=== PATIENT | male | born 1955 | race African-American/Black ===

== ENCOUNTER 2019-07-19 21:30 | Inpatient (IN) | payer MEDICAID ==
[~2019-07-19] VITALS: Ht 167.6 cm; Wt 58.1 kg
[2019-07-19 21:35] VITALS: BP_SYST 155; BP_SYST 5
--- NOTE | 2019-07-19 21:40 | NUR ---
Placed in room 6 . Placed on cardiac cath lab manager, blood pressure machine and pulse oximeter. To gown for exam. Side rails up. Report given to DEEPA ROCK.
--- NOTE | 2019-07-19 22:10 | NUR ---
Pt BIB EMS with c/o SOB. Pt A&Ox4. Upon assessment, pt presents with bilateral diminished lung sounds with wheezing. Pt states history of COPD. Pt states productive cough for a couple days. Pt describes sputum as yellow/green. Pt states sore throat, body aches, runny nose and headache. Pt states pain 2/10. Pt presents to ER with 18g in Left forearm. IV flushed and working. Will continue to monitor.
[2019-07-19 22:16] LABS: BASOPHILS % (AUTO) 0.2 % (0.0-2.0); EOSINOPHILS # (AUTO) 0.2 K/uL (0.0-0.4); EOSINOPHILS % (AUTO) 1.6 % (0.0-4.0); HEMATOCRIT 47.6 % (36-54); LYMPHOCYTES # (AUTO) 0.9 K/uL (1.0-5.5); MEAN CORPUSCULAR HEMOGLOBIN 29 pg (27-31); MEAN CORPUSCULAR HGB CONC 31 % (32-36); MEAN CORPUSCULAR VOLUME 92 fL (79.0-98.0); MONOCYTES # (AUTO) 1.3 K/uL (0.0-1.0); MONOCYTES % (AUTO) 12.1 % (1.7-9.3); NEUTROPHILS # (AUTO) 8.7 K/uL (1.8-7.7); NEUTROPHILS % (AUTO) 78.1 % (40.0-70.0); PLATELET COUNT (AUTO) 234 K/uL (130-430); RED BLOOD CELL COUNT(AUTO) 5.17 MIL/uL (4.2-6.2); RED CELL DISTRIBUTION WIDTH 14.2 % (9.0-15.0); WHITE BLOOD COUNT (AUTO) 11.1 K/uL (4.8-10.8)
--- NOTE | 2019-07-19 22:26 | NUR ---
ER Dr. Alarcon at bedside examining patient.
[2019-07-19 22:37] LABS: CALCIUM 8.6 mg/dL (8.4-11.0); CREATININE 0.8 mg/dL (0.55-1.30); POTASSIUM 4.7 mmol/L (3.5-5.1)
[2019-07-19 22:41] LABS: INR 1.1 (0.80-1.20); PROTHROMBIN TIME 11.1 SECS (9.5-12.5)
[2019-07-19 22:43] LABS: ALBUMIN 3.5 g/dL (3.4-4.8); TOTAL BILIRUBIN 0.4 mg/dL (0.0-1.0)
[2019-07-19] MEDS ORDERED: OSELTAMIVIR PHOSPHATE 75 MG CAPSULE PO ONE (22:45)
[2019-07-19] MEDS ORDERED: IPRATROPIUM/ALBUTEROL SULFATE 3 ML AMPUL.NEB (DUONEB) INH ONE (22:45)
[2019-07-19] MEDS ORDERED: methylPREDNISolone SOD SUCC/PF 62.5 MG/ML VIAL IVP ONE (22:45)
[2019-07-19] MEDS ORDERED: ALBU2.5V7 INH (22:51)
[2019-07-19] MEDS ORDERED: FURO-149 PO (22:51)
[2019-07-19] MEDS ORDERED: HYDR-3925 PO (22:51)
[2019-07-19] MEDS ORDERED: CARV3.1246 PO (22:51)
--- NOTE | 2019-07-19 22:51 | NUR ---
Medication reconciliation completed with information provided by patient. Any prior medication reconciliation on file was reviewed and corrected.
--- NOTE | 2019-07-19 23:20 | NUR ---
Pt medicated per MD orders. Pt tolerated well. Will continue to monitor.
--- NOTE | 2019-07-20 01:10 | NUR ---
Patient will be admitted to care of [facility]. Admitted to Telemetry unit. Will go to room 123A. Belongings list completed. Complete and up to date summary report printed. SBAR report to be given at bedside with opportunity for questions.
[2019-07-20] MEDS ORDERED: ACETAMINOPHEN 500 MG TABLET PO PRN (01:15)
[2019-07-20] MEDS ORDERED: HYDROcodone/ACETAMIN 7.5-325 MG TAB PO PRN (01:15)
[2019-07-20] MEDS ORDERED: ONDANSETRON HCL 4 MG/2 ML VIAL IVP PRN (01:15)
[2019-07-20] MEDS ORDERED: IPRATROPIUM/ALBUTEROL SULFATE 3 ML AMPUL.NEB (DUONEB) INH PRN (01:15)
[2019-07-20] MEDS ORDERED: DOCUSATE SODIUM 100 MG/10 ML UDC PO PRN (01:15)
--- NOTE | 2019-07-20 01:26 | NUR ---
ADMIT NOTE Received pt from ER to the floor with a diagnosis of COPD EXACERBATION. Admission process initiated. patient oriented to pain management, safety and call light-teach back done.
--- NOTE | 2019-07-20 01:26 | NUR ---
Transfer to Telemetry room 123A via ACLS protocol. Licensed nurse present. IV present no signs or symptoms of infiltration.
[2019-07-20 01:36] VITALS: BP_SYST 139
--- NOTE | 2019-07-20 01:40 | NUR ---
ROUNDS PATIENT IN BED, VITALS STABLE, DENIES ANY PAIN AND DISCOMFORT AT THIS TIME. ASSESSMENT DONE AND DOCUMENTED. SEE FLOWSHEET. ORIENTED TO HIS ROOM, PHONE AND CALL LIGHT. NEEDS ATTENDED TO. SAFETY AND FALL MEASURES IN PLACED. BED IN LOW AND LOCKED POSITION. CALL LIGHT PLACED WITHIN REACH.
[2019-07-20 01:59] LABS: PHOSPHORUS 1.9 mg/dL (2.7-4.5)
[2019-07-20 02:40] LABS: FREE T4 (FREE THYROXINE) 1.1 ng/dL (0.6-1.6); THYROID STIMULATING HORMONE 0.46 uIu/mL (0.34-4.82)
--- NOTE | 2019-07-20 04:10 | NUR ---
ROUNDS PATIENT ASLEEP, RESPIRATIONS EVEN AND UNLABORED, WILL CONTINUE TO MONITOR.
[2019-07-20 05:00] VITALS: BP_SYST 139
--- NOTE | 2019-07-20 05:02 | NUR ---
[facility] CONSULT CALLED: CALLED AND TALKED WITH DIMITRI AND NOTIFIED THE NEW CONSULT WITH DR HICKEY FOR COPD EXACERBATION. DR HICKEY IS ONCALL
[2019-07-20] MEDS: methylPREDNISolone SOD SUCC/PF 62.5 MG/ML VIAL IVP SCH ×2 (05:22→15:18)
[2019-07-20] MEDS: NACL 0.9% 1,000 ML IV SCH (05:22)
[2019-07-20] MEDS: IPRATROPIUM/ALBUTEROL SULFATE 3 ML AMPUL.NEB (DUONEB) INH SCH ×4 (07:17→19:59)
[2019-07-20 08:00] VITALS: BP_SYST 128
--- NOTE | 2019-07-20 08:00 | NUR ---
ASSUMPTION OF CARE: RECEIVED PT A/A/OX4, DX:INADEQUATE VENTILATION, R/T COPD EXACERBATION, VSS, AFEBRILE, NO S/S OF DISTRESS, RECEIVING BREATHING TX AT THIS TIME, BREATH SOUNDS ARE RHONCHI WITH MILD CRACKLES, SATURATING 95% WHILE ON 2L VIA N/C, NO C/O PAIN OR DISCOMFORT, IV SITE INTACT, PATENT, NO REDNESS OR SWELLING, ORIENTED TO CALL LIGHT, PLACED WITHIN REACH, WILL CONT' TO MONITOR AND ASSESS.
[2019-07-20 10:48] LABS: BASOPHILS % (AUTO) 0.1 % (0.0-2.0); EOSINOPHILS % (AUTO) 0.1 % (0.0-4.0); HEMATOCRIT 47.1 % (36-54); LYMPHOCYTES # (AUTO) 0.3 K/uL (1.0-5.5); LYMPHOCYTES % (AUTO) 3.2 % (20.5-51.5); MEAN CORPUSCULAR HEMOGLOBIN 29 pg (27-31); MEAN CORPUSCULAR HGB CONC 32 % (32-36); MEAN CORPUSCULAR VOLUME 91 fL (79.0-98.0); MONOCYTES # (AUTO) 0.1 K/uL (0.0-1.0); MONOCYTES % (AUTO) 0.7 % (1.7-9.3); NEUTROPHILS % (AUTO) 95.9 % (40.0-70.0); PLATELET COUNT (AUTO) 219 K/uL (130-430); RED BLOOD CELL COUNT(AUTO) 5.16 MIL/uL (4.2-6.2); RED CELL DISTRIBUTION WIDTH 14.2 % (9.0-15.0); WHITE BLOOD COUNT (AUTO) 10.4 K/uL (4.8-10.8)
[2019-07-20 10:59] LABS: CALCIUM 9.4 mg/dL (8.4-11.0); CREATININE 0.89 mg/dL (0.55-1.30); POTASSIUM 5.1 mmol/L (3.5-5.1)
[2019-07-20] MEDS ORDERED: AZITHROMYCIN 250 MG TABLET PO ONE (12:00)
--- NOTE | 2019-07-20 12:00 | NUR ---
VISIT: AT BEDSIDE FOR ASSESSMENT OF PT, DISCUSSED POC, PT VERBALIZES UNDERSTANDING, WILL CONT' TO MONITOR AND ASSESS.
[2019-07-20] MEDS ORDERED: ENOXAPARIN SODIUM 40 MG/0.4 ML SYRINGE SUBCUT ONE (12:15)
[2019-07-20 12:33] VITALS: BP_SYST 142
--- NOTE | 2019-07-20 14:00 | NUR ---
DUCK OPERATOR: MEDS GIVEN, PER ORDERED BY Rick, TOLERATED WELL, WILL CONT' TO MONITOR AND ASSESS.
[2019-07-20] MEDS: cefTRIAXone 1 GM in D5W 50 ML IV SCH (15:17)
--- NOTE | 2019-07-20 16:00 | NUR ---
NURSES NOTES: PT RESTING IN POSITION OF COMFORT, CALL LIGHT WITHIN REACH, NO S/S OF DISTRESS, WILL CONT' TO MONITOR AND ASSESS.
[2019-07-20 16:41] VITALS: BP_SYST 125
--- NOTE | 2019-07-20 18:00 | NUR ---
END OF SHIFT: PT HAS NO SIGNIFICANT CHANGES, NO C/O ANYTHING AT THIS TIME, NEEDS MET, CALL LIGHT WITHIN REACH, WILL CONT' TO MONITOR, WILL ENDORSE TO ADMISSIONS MANAGER NURSE.
--- NOTE | 2019-07-20 19:45 | NUR ---
ROUNDS PATIENT IN BED, WATCHING TV, VITALS STABLE, DENIES PAIN AT THIS TIME. ASSESSMENT DONE AND DOCUMENTED. SEE FLOWSHEET. NEEDS ATTENDED TO. SAFETY AND FALL MEASURES IN PLACED. CALL LIGHT PLACED WITHIN REACH.
[2019-07-20 20:00] VITALS: BP_SYST 118
[2019-07-20] MEDS: methylPREDNISolone SOD SUCC 40 MG/ML VIAL IVP SCH (20:13)
--- NOTE | 2019-07-20 21:15 | NUR ---
MEDICATION DUE MEDICATIONS GIVEN ORDERED, TOLERATED WELL. WILL CONTINUE TO MONITOR.
[2019-07-21] VITALS: BP_SYST 112
--- NOTE | 2019-07-21 00:13 | NUR ---
PATIENT RESTING: Patient resting quietly. No acute distress noted. Vital signs within normal range.
[2019-07-21] MEDS: NACL 0.9% 1,000 ML IV SCH (01:06)
[2019-07-21] MEDS: IPRATROPIUM/ALBUTEROL SULFATE 3 ML AMPUL.NEB (DUONEB) INH SCH ×4 (01:28→19:52)
--- NOTE | 2019-07-21 02:16 | NUR ---
ROUNDS PATIENT ASLEEP, NO SOB NOR PAIN AND DISCOMFORT NOTED, WILL CONTINUE TO MONITOR.
--- NOTE | 2019-07-21 04:12 | NUR ---
PATIENT RESTING: Patient resting quietly. No acute distress noted. Vital signs within normal range.
--- NOTE | 2019-07-21 06:40 | NUR ---
CLOSING NOTES PATIENT AWAKE, NO COMPLAINTS AT THIS TIME, VITALS STABLE. ALL NEEDS ATTENDED TO. SAFETY AND FALL MEASURES MAINTAINED. CALL LIGHT PLACED WITHIN REACH.
--- NOTE | 2019-07-21 07:20 | NUR ---
AM ROUNDS: PATIENT AWAKE ON THE BED. O2 2L/NC,GOOD SATURATION. CALL LIGHT WITH IN REACH. BED LOCKED AT LOWEST POSITION. NOT IN ANY DISTRESS.
[2019-07-21 08:25] VITALS: BP_SYST 127
[2019-07-21] MEDS: ENOXAPARIN SODIUM 40 MG/0.4 ML SYRINGE SUBCUT SCH (09:00)
[2019-07-21] MEDS: AZITHROMYCIN 250 MG TABLET PO SCH (09:01)
[2019-07-21] MEDS: methylPREDNISolone SOD SUCC 40 MG/ML VIAL IVP SCH ×2 (09:01→16:36)
[2019-07-21 09:02] LABS: CREATININE 0.74 mg/dL (0.55-1.30); POTASSIUM 4.3 mmol/L (3.5-5.1)
--- NOTE | 2019-07-21 09:02 | NUR ---
MED PASS: DUE PO MEDS GIVEN .NO ADVERSE REACTIONS NOTED.
[2019-07-21 09:04] LABS: BASOPHILS % (AUTO) 0.1 % (0.0-2.0); HEMOGLOBIN 15.4 g/dL (14.0-18.0); LYMPHOCYTES # (AUTO) 0.8 K/uL (1.0-5.5); LYMPHOCYTES % (AUTO) 3.1 % (20.5-51.5); MEAN CORPUSCULAR HEMOGLOBIN 29 pg (27-31); MEAN CORPUSCULAR HGB CONC 31 % (32-36); MEAN CORPUSCULAR VOLUME 92 fL (79.0-98.0); MONOCYTES # (AUTO) 1.6 K/uL (0.0-1.0); MONOCYTES % (AUTO) 6.1 % (1.7-9.3); NEUTROPHILS # (AUTO) 23.6 K/uL (1.8-7.7); NEUTROPHILS % (AUTO) 90.7 % (40.0-70.0); PLATELET COUNT (AUTO) 220 K/uL (130-430); RED BLOOD CELL COUNT(AUTO) 5.35 MIL/uL (4.2-6.2); RED CELL DISTRIBUTION WIDTH 14.3 % (9.0-15.0)
[2019-07-21 12:00] VITALS: BP_SYST 125
[2019-07-21] MEDS ORDERED: methylPREDNISolone SOD SUCC 40 MG/ML VIAL IVP SCH ×2 (12:00→22:00)
[2019-07-21] MEDS: cefTRIAXone 1 GM in D5W 50 ML IV SCH (13:02)
--- NOTE | 2019-07-21 13:08 | NUR ---
DC TELE: DOWN GRADED TO MEDICAL SURGICAL UNIT ORDERED.
--- NOTE | 2019-07-21 13:20 | NUR ---
RN ROUNDS: PATIENT HAD LUNCH. ATE WELL.
[2019-07-21 15:00] VITALS: BP_SYST 125
--- NOTE | 2019-07-21 15:30 | NUR ---
RN ROUNDS: SLEEPING DURING ROUNDS. NOT IN ANY DISTRESS.
--- NOTE | 2019-07-21 17:30 | NUR ---
BRP : PATIENT WENT TO THE TOILET.WITH STEADY GAIT. THEN BACK TO HIS BED. STABLE.
--- NOTE | 2019-07-21 18:29 | NUR ---
END OF SHIFT: PATIENT EATING DINNER. NO NEEDS THIS TIME. CALL LIGHT WITHIN REACH. BED LOCKED AT LOWEST POSITION. SAFETY MEASURES RENDERED.
[2019-07-21 19:40] VITALS: BP_SYST 127
--- NOTE | 2019-07-21 19:40 | NUR ---
INITIAL ASSESSMENT PATIENT IS STABLE AND WATCHING TV. NO S/S OF RESPIRATORY DISTRESS NOTED. CALL LIGHT IN REACH. BED IS LOCKED, ALARMED, AND AT THE LOWEST POSITION. FALL, SAFETY, ASPIRATION, AND RESPIRATORY PRECAUTIONS WILL BE IN PLACE THROUGHOUT THE SHIFT. PATIENT SUCCESSFULLY DEMONSTRATES USAGE OF CALL LIGHT AT THIS TIME. PATIENT VERBALIZES NO PAIN. WILL CONTINUE TO MONITOR.
--- NOTE | 2019-07-21 21:40 | NUR ---
PATIENT REQUESTED SANDWICH AND JUICE AT THIS TIME. SANDWICH AND JUICE WERE GIVEN. PATIENT IS STABLE. NO S/S OF RESPIRATORY DISTRESS NOTED. CALL LIGHT IN REACH. BED IS LOCKED, ALARMED, AND AT THE LOWEST POSITION. WILL CONTINUE TO MONITOR.
--- NOTE | 2019-07-21 23:40 | NUR ---
PATIENT REQUESTED ANOTHER SANDWICH AND JUICE AT THIS TIME. SANDWICH AND JUICE WERE GIVEN. PATIENT IS STABLE. NO S/S OF RESPIRATORY DISTRESS NOTED. CALL LIGHT IN REACH. BED IS LOCKED, ALARMED, AND AT THE LOWEST POSITION. WILL CONTINUE TO MONITOR.
[2019-07-22 00:02] VITALS: BP_SYST 138
[2019-07-22] MEDS: NACL 0.9% 1,000 ML IV SCH (00:17)
[2019-07-22] MEDS: methylPREDNISolone SOD SUCC 40 MG/ML VIAL IVP SCH ×3 (00:17→17:16)
[2019-07-22] MEDS: IPRATROPIUM/ALBUTEROL SULFATE 3 ML AMPUL.NEB (DUONEB) INH SCH ×2 (01:27→19:16)
--- NOTE | 2019-07-22 01:40 | NUR ---
PATIENT IS SLEEPING AND STABLE. NO S/S OF RESPIRATORY DISTRESS NOTED. CALL LIGHT IN REACH. BED IS LOCKED, ALARMED, AND AT THE LOWEST POSITION. WILL CONTINUE TO MONITOR.
--- NOTE | 2019-07-22 06:40 | NUR ---
CLOSING NOTES PATIENT IS STABLE IN BED AND SHOWS NO S/S OF RESPIRATORY DISTRESS. CALL LIGHT IN REACH. BED IS LOCKED, ALARMED, AND AT THE LOWEST POSITION. FALL, SAFETY, ASPIRATION, AND RESPIRATORY PRECAUTIONS HAS BEEN IN PLACE THROUGHOUT THE SHIFT. WILL CONTINUE TO MONITOR UNTIL REPORT IS GIVEN TO AM NURSE BY BEDSIDE.
--- NOTE | 2019-07-22 07:30 | NUR ---
INITIAL NOTE PT RESTING IN BED, NO ACUTE DISTRESS NOTED. PT ON 3L NC, BREATHING EVEN AND UNLABORED. SCDS AT EDGE OF BED. CALL LIGHT WITHIN REACH, BED IN LOW AND LOCKED POSITION WITH BED ALARM ON.
[2019-07-22 08:00] VITALS: BP_SYST 141
[2019-07-22] MEDS: AZITHROMYCIN 250 MG TABLET PO SCH (09:19)
[2019-07-22 09:20] LABS: BASOPHILS # (AUTO) 0.1 K/uL (0.0-0.2); BASOPHILS % (AUTO) 0.3 % (0.0-2.0); HEMATOCRIT 47.8 % (36-54); HEMOGLOBIN 14.7 g/dL (14.0-18.0); LYMPHOCYTES # (AUTO) 0.4 K/uL (1.0-5.5); LYMPHOCYTES % (AUTO) 1.7 % (20.5-51.5); MEAN CORPUSCULAR HEMOGLOBIN 28 pg (27-31); MEAN CORPUSCULAR HGB CONC 31 % (32-36); MEAN CORPUSCULAR VOLUME 92 fL (79.0-98.0); MONOCYTES # (AUTO) 0.5 K/uL (0.0-1.0); MONOCYTES % (AUTO) 2.1 % (1.7-9.3); NEUTROPHILS # (AUTO) 20.7 K/uL (1.8-7.7); NEUTROPHILS % (AUTO) 95.9 % (40.0-70.0); PLATELET COUNT (AUTO) 216 K/uL (130-430); RED BLOOD CELL COUNT(AUTO) 5.18 MIL/uL (4.2-6.2); RED CELL DISTRIBUTION WIDTH 14.8 % (9.0-15.0); WHITE BLOOD COUNT (AUTO) 21.5 K/uL (4.8-10.8)
[2019-07-22] MEDS: ENOXAPARIN SODIUM 40 MG/0.4 ML SYRINGE SUBCUT SCH (09:22)
--- NOTE | 2019-07-22 09:30 | NUR ---
RN ROUNDS PT AWAKE. EMPTIED OUT URINAL 200CC, CLEAR AND YELLOW. PT DENIES ANY SOB AT THIS TIME.
[2019-07-22 09:37] LABS: CALCIUM 8.5 mg/dL (8.4-11.0); CREATININE 0.72 mg/dL (0.55-1.30); POTASSIUM 4.8 mmol/L (3.5-5.1)
[2019-07-22] MEDS ORDERED: guaiFENesin/DEXTROMETHORPHAN 10 ML UDC PO PRN (10:15)
[2019-07-22] MEDS ORDERED: INSULIN LISPRO SLIDING SCALE 100 UNITS/ML VIAL (humaLOG) SUBCUT PRN (10:15)
[2019-07-22] MEDS ORDERED: DEXTROSE 50% JECT 50 ML DISP.SYRIN IVP PRN (10:15)
[2019-07-22] MEDS ORDERED: K PHOS 30 MM in NS 250 ML IV ONE (10:30)
--- NOTE | 2019-07-22 10:30 | NUR ---
CRITICAL LAB/ SPOKE WITH AT NURSES STATIONS, INFORMED CRITICAL LAB CO2 42. MD TO PUT IN NEW ORDERS.
--- NOTE | 2019-07-22 10:35 | NUR ---
DR. CORBETT SPOKE WITH MD AT NURSES STATION, INFORMED MD THAT PT NEEDS MED RECONCILED. MD TO CONTINUE PTS HOME MEDICATIONS.
[2019-07-22] MEDS: BUDESONIDE 0.5 MG/2 ML AMPUL.NEB INH SCH ×2 (10:39→21:12)
[2019-07-22] MEDS ORDERED: FUROSEMIDE 40 MG TABLET PO ONE (11:00)
--- NOTE | 2019-07-22 11:30 | NUR ---
BSG 129 PT DENIES HAVING ANY HISTORY OF DM 2. PT WAS COOPERATIVE AND ALLOWED ME TO CHECK BSG. NO COVERAGE NEEDED. WILL F/U WITH MD IN REGARDS TO BSG CHECKS.
[2019-07-22] MEDS: cefTRIAXone 1 GM in D5W 50 ML IV SCH (12:04)
[2019-07-22 12:15] VITALS: BP_SYST 139
--- NOTE | 2019-07-22 13:30 | NUR ---
RN ROUNDS PT AWAKE, DENIES ANY PAIN OR DISCOMFORT AT THIS TIME. PT REMAINS ON 3L NC. TOLERATING WELL.
--- NOTE | 2019-07-22 15:30 | NUR ---
RN ROUNDS NO CHANGE IN ASSESSMENT, WILL CONTINUE MONITOR.
[2019-07-22 16:20] VITALS: BP_SYST 135
--- NOTE | 2019-07-22 17:00 | NUR ---
BSG 144 NO INSULIN COVERAGE NEEDED. NO CHANGE IN ASSESSMENT,WILL CONTINUE TO MONITOR.
--- NOTE | 2019-07-22 19:35 | NUR ---
CLOSING NOTE PT RECEIVING BREATHING TREATMENT. PT DENIES ANY SOB OR DISCOMFORT AT THIS TIME. IVF INFUSING WELL. CALL LIGHT WITHIN REACH, BED IN LOW AND LOCKED POSITION WITH BED ALARM ON. ALL NEEDS MET THROUGHOUT SHIFT. PT CARE ENDORSED TO TRIMMING MACHINE SET UP OPERATOR RN.
[2019-07-22 19:40] VITALS: BP_SYST 125
--- NOTE | 2019-07-22 19:40 | NUR ---
INITIAL ASSESSMENT PATIENT IS WATCHING TV AND STABLE. NO S/S OF RESPIRATORY DISTRESS NOTED. CALL LIGHT IN REACH. BED IS LOCKED, ALARMED, AND AT THE LOWEST POSITION. FALL, SAFETY, ASPIRATION, AND RESPIRATORY PRECAUTIONS WILL BE IN PLACE THROUGHOUT THE SHIFT. PATIENT SUCCESSFULLY DEMONSTRATES USAGE OF CALL LIGHT AT THIS TIME. PATIENT VERBALIZES NO PAIN. WILL CONTINUE TO MONITOR.
[2019-07-22] MEDS: CARVEDILOL 3.125 MG TABLET (COREG) PO SCH (20:37)
--- NOTE | 2019-07-22 21:15 | NUR ---
PATIENT REFUSED INSULIN DESPITE EDUCATIONAL EFFORTS. WILL CONTINUE TO EDUCATE.
[2019-07-23] MEDS: IPRATROPIUM/ALBUTEROL SULFATE 3 ML AMPUL.NEB (DUONEB) INH SCH ×2 (00:03→07:32)
[2019-07-23 00:05] VITALS: BP_SYST 125
[2019-07-23] MEDS: methylPREDNISolone SOD SUCC 40 MG/ML VIAL IVP SCH ×2 (00:28→09:11)
[2019-07-23] MEDS: NACL 0.9% 1,000 ML IV SCH (00:29)
[2019-07-23] MEDS ORDERED: PRED10TA PO (05:49)
[2019-07-23 06:36] LABS: BASOPHILS % (AUTO) 0.1 % (0.0-2.0); HEMATOCRIT 47.8 % (36-54); HEMOGLOBIN 14.6 g/dL (14.0-18.0); LYMPHOCYTES # (AUTO) 0.4 K/uL (1.0-5.5); MEAN CORPUSCULAR HEMOGLOBIN 28 pg (27-31); MEAN CORPUSCULAR HGB CONC 30 % (32-36); MEAN CORPUSCULAR VOLUME 92 fL (79.0-98.0); MONOCYTES # (AUTO) 0.6 K/uL (0.0-1.0); MONOCYTES % (AUTO) 3.1 % (1.7-9.3); NEUTROPHILS # (AUTO) 17.8 K/uL (1.8-7.7); NEUTROPHILS % (AUTO) 94.8 % (40.0-70.0); PLATELET COUNT (AUTO) 203 K/uL (130-430); RED BLOOD CELL COUNT(AUTO) 5.18 MIL/uL (4.2-6.2); RED CELL DISTRIBUTION WIDTH 14.8 % (9.0-15.0); WHITE BLOOD COUNT (AUTO) 18.8 K/uL (4.8-10.8)
--- NOTE | 2019-07-23 07:20 | NUR ---
CLOSING NOTES PATIENT IS SITTING IN BED. PATIENT IS STABLE. NO S/S OF RESPIRATORY DISTRESS NOTED. CALL LIGHT IN REACH. BED IS LOCKED, ALARMED, AND AT THE LOWEST POSITION. FALL, SAFETY, ASPIRATION, AND RESPIRATORY PRECAUTIONS HAS BEEN IN PLACE THROUGHOUT THE SHIFT. REPORT GIVEN TO MORNING NURSE AND DISCHARGE INFORMATION ENDORSED.
[2019-07-23 07:30] LABS: CALCIUM 8.4 mg/dL (8.4-11.0); CREATININE 0.7 mg/dL (0.55-1.30); PHOSPHORUS 2.6 mg/dL (2.7-4.5); POTASSIUM 5.2 mmol/L (3.5-5.1)
--- NOTE | 2019-07-23 08:05 | NUR ---
Dr. Fields informed regarding elevated potassium level 5.2 , Ok to discharge home today.
[2019-07-23] MEDS: CARVEDILOL 3.125 MG TABLET (COREG) PO SCH (08:27)
[2019-07-23] MEDS: AZITHROMYCIN 250 MG TABLET PO SCH (08:28)
[2019-07-23] MEDS: ENOXAPARIN SODIUM 40 MG/0.4 ML SYRINGE SUBCUT SCH (08:29)
[2019-07-23] MEDS ORDERED: FUROSEMIDE 40 MG TABLET PO SCH (09:00)
--- NOTE | 2019-07-23 09:44 | NUR ---
Nutrition Update Cam Scale 18 noted. Pt admitted for COPD exacerbation. Diet: regular BMI: 20.7 kg/m2 RD to follow per nutrition care standards.
[2019-07-23 12:18] VITALS: BP_SYST 134
[2019-07-23 14:31] VITALS: BP_SYST 122
[2019-07-23] MEDS ORDERED: CALCIUM CARBONATE 500 MG/ TAB.CHEW PO ONE (15:45)
[2019-07-23 16:41] VITALS: BP_SYST 122
--- NOTE | 2019-07-23 17:25 | NUR ---
patient being d/c home in the care of spouse. Removed HL form left wrist. Prescriptions given along with teaching materals on how to use Nebulizer and COPD. Educated patient on what S&S to watch for. un relived SOB with rest. temp greater than 101. go to nearest er or call 911. Take slow deep breaths before standing. ask for help when walking until feeling full strength. follow up with PCP and call to make follow up appointment. Vss no s&S of distress. patient was assisted via wheelchair with spouse to car.
--- NOTE | 2019-07-30 14:09 | NUR ---
Discharge Follow Up Phone Call Phoned the number listed for patient, , and spoke with patient's , Janice. Janice stated that patient is doing okay and has a follow up appointment scheduled with his PCP for 07/31/19. He also has a CT of the abdomen scheduled. Patient obtained the prescribed nebulizer and filled his prescriptions. They had difficulty using the Albuterol prescription as prescribed. They will also follow up with patient's recreation technician after the PCP appointment. No other questions or concerns. Provided Social Service contact information.
== END 2019-07-23 17:10 | disposition home or self-care (01) | DRG 133 ==
LOC: EDSEX 21:30 → SED 21:30 → STU 07-20 01:09 → SMU 07-21 13:28 → OBSVTOIN 07-22 14:16
PROVIDERS: ADMIT Family Medicine; ATTEND Family Medicine
PROC: 5A09357 Assistance with Respiratory Ventilation, Less than 24 Consecutive Hours, Continuous Positive Airway Pressure (ICD-10-PCS; principal; 2019-07-20)
DX: J96.22 Acute and chronic respiratory failure with hypercapnia (principal); R65.11 Systemic inflammatory response syndrome (SIRS) of non-infectious origin with acute organ dysfunction; C85.90 Non-Hodgkin lymphoma, unspecified, unspecified site; E83.39 Other disorders of phosphorus metabolism; E83.42 Hypomagnesemia; M41.9 Scoliosis, unspecified; E87.1 Hypo-osmolality and hyponatremia; Z99.81 Dependence on supplemental oxygen; J44.1 Chronic obstructive pulmonary disease with (acute) exacerbation; B19.20 Unspecified viral hepatitis C without hepatic coma; I25.10 Atherosclerotic heart disease of native coronary artery without angina pectoris; I10 Essential (primary) hypertension; Z79.899 Other long term (current) drug therapy; Z88.6 Allergy status to analgesic agent; Z87.891 Personal history of nicotine dependence; Z83.3 Family history of diabetes mellitus; Z82.49 Family history of ischemic heart disease and other diseases of the circulatory system
CPT/HCPCS: 36415; 36600; 71045; 80048; 80053; 80061; 82150-TC; 82803-TC; 82962; 83036; 83605; 83690-TC; 83735-TC; 83880; 84100-TC; 84132-TC; 84439; 84443-TC; 84484; 85025; 85379; 85610-TC; 85730-TC; 86710; 93005; 94640; 94760; 99285; G0378; G9035; J0696; J1030; J1120; J1650; J1956; J2930; J7030; J7050; J7060; J7620; J7626; Q0144